=== PATIENT | female | born 1950 | race Caucasian/White ===

== ENCOUNTER → 2018-06-23 | Outpatient (CLI) | payer OTHER ==
[~2018-06-23] MED LIST: APAP650 PO; ASPIR 8181 MG PO; ASPIRIN325 PO; B12INJ; BAYER CHEWABLE81 MG PO; BIOTIN10 MG PO; CALCIUM CITRATE PO; CO ENZYME PO; COLACE100 MG PO; HYDROCODONE-AP1 EAC6 PO; IRON325; LIPITOR 20 MG T20 M1 PO; LISINOPRIL20 MG PO; LUTEIN20 M1 PO; MEGA BIOTIN10000 MCG PO; MELATONIN10 M1 PO; MOBIC15 MG PO; MULTIVITAMINS PO; OMEGA FISH OIL PO; OXYCODONE HCL 55 MG PO; PRILOSEC40 MG PO; TYLENOL PM EX-1 EACH PO; VITAMIN D3400 UNIT; XARELTO10 MG PO; ZOLOFT50 MG PO; [UNRECOGNIZED DRUG - OTHER]
[2018-06-23 16:03] LABS: HEMOGLOBIN 12.1 gm/dL (12.0-15.0); MCHC 33.7 g/dL (28.0-37.0); MPV 7.2 fl. (7.2-11.1); RBC 3.91 mil/uL (4.20-5.00); WBC 6.6 thou/uL (4.0-11.0)
[2018-06-26 12:05] LABS: ANA INTERPRETATION Negative (Negative)
== END ==
LOC: M.LAB 15:37
PROVIDERS: Orthopaedic Surgery
DX: M25.561 Pain in right knee (principal); M25.562 Pain in left knee